=== PATIENT | female | born 1965 | race Caucasian/White ===

== ENCOUNTER → 2016-06-26 | Outpatient (CLI) | payer BC ==
[~2016-06-26] MED LIST: MTR600X PO
--- NOTE | 2016-06-26 15:47 | MAMMOGRAPHY REPORT ---
UNILATERAL RIGHT DIGITAL DIAGNOSTIC MAMMOGRAM TOMOSYNTHESIS WITH CAD AND TARGETED RIGHT ULTRASOUND: 06/26/2016 CLINICAL HISTORY: Short interval follow-up for an asymmetry in the inferior right breast. Possible sonographic correlate of the lobulated cyst on ultrasound. TECHNIQUE: Right breast tomosynthesis in addition to standard 2D mammography was performed. Current study was also evaluated with a Computer Aided Detection (CAD) system. COMPARISON: Comparison is made to exams dated: 11/28/2015 mammogram, 12/19/2015 mammogram, and 12/19/19 16 ultrasound - [facility]. BREAST COMPOSITION: The tissue of the right breast is heterogeneously dense, which may obscure smal l masses. FINDINGS: The 6 mm asymmetry in the slightly inferior right breast on the MLO view is less conspicuo us comparing to the 11/28/2015 mammogram. No new suspicious mass, architectural distortion or clust er of microcalcifications is seen. Repeat targeted ultrasound was performed throughout the inferior right breast with particular attent ion to the 4:00 axis in the area of probable, located cyst seen on prior ultrasound. In the 4:00 ax is, 2 cm from the nipple, an elongated lobulated predominantly anechoic cystic appearing mass is aga in seen, measuring 6.1 x 1.7 x 5.6 mm. This has flattened compared to the prior ultrasound, confirm ing a fluctuating cyst. This could also explain the decreased prominence of the mammographic asymme try. No suspicious solid mass is seen throughout the remainder of the inferior right breast on ultr asound. IMPRESSION: ACR BI-RADS CATEGORY 2: BENIGN, TARGETED ULTRASOUND ACR BI-RADS CATEGORY 2: BENIGN No persistent asymmetry in the inferior right breast mammographically, and decreasing/fluctuating cy st in the 4:00 right breast on ultrasound. There is no mammographic or targeted sonographic evidenc e of malignancy within the right breast. Recommend follow-up in November 2016 for routine bilateral jayla mography. Approximately 10% of breast cancers are not detected with mammography. A negative mammographic repor t should not delay biopsy if a clinically suggestive mass is present. Cassie Ruff M.D. ay/:06/26/2016 14:54:29 Nurses Assistant: Luba HANKINS(Glo)(Lizeth), [facility] letter sent: Normal 1/2 BI-RADS Code: ACR BI-RADS Category 2: Benign Ultrasound BI-RADS: ACR BI-RADS Category 2: Benign
== END | disposition home or self-care (01) ==
LOC: C.MAMM 13:18
PROVIDERS: ATTEND Obstetrics & Gynecology
DX: N60.01 Solitary cyst of right breast (principal)